=== PATIENT | female | born 1945 | race Caucasian/White ===

== ENCOUNTER → 2017-05-19 | Outpatient (CLI) | payer MEDICARE, OTHER ==
[~2017-05-19] MED LIST: ALDACTONE50 MG PO; ALFALFA650 MG PO; AMARYL2 MG PO; AMARYL4 MG PO; AMLODIPINE BESY10 MG PO; ATENOLOL 50 MG50 M1 PO; ATENOLOL 50MG T50 M1 PO; BENTYL 10 MG CA10 M1 PO; COLESTIPOL HCL1 G1 PO; CYCLOBENZAPRINE10 MG PO; DEMADEX20 MG PO; GLUCOPHAGE500 MG PO; KRILL OIL 1,001 EAC1 PO; LEVAQUIN 500 M500 M2 PO; LISINOPRIL10 MG PO; MAGOX 400400 MG PO; NOLVADEX20 MG PO; ONGLYZA5 MG PO; PROPRANOLOL 1010 MG PO; VICODIN ES TAB1 EACH PO; VITAMIN D2000 UNIT PO; XIFAXAN550 M1 PO
[2017-05-19 11:43] VITALS: BP 145/53
[2017-05-19 12:56] VITALS: BP 132/60
--- NOTE | 2017-05-19 13:02 | NUR ---
ARRIVED AMBULATORY. MADE SELF COMFORTABLE IN RECLINER. DENEIS ADVERSE REACTION TO MULTIPLE INFUSIONS OF SAME. PORT A CATH ACCESSED WTIH OUT DIFFICULTY. GOOD BRISK BLOOD RETURN NOTED AND FLUSHED WITH EASE. INFUSION COMPLETED AND TOLERATED WELL. PORT FLUSHED AND DEACCESSED. DENIES QUESTIONS OR NEEDS AT DISCHARGE.
== END ==
LOC: M.INFUS 00:08
DX: K74.69 Other cirrhosis of liver (principal)

== ENCOUNTER → 2017-05-25 | Outpatient (CLI) | payer MEDICARE, OTHER ==
[2017-05-25 11:40] VITALS: BP 147/61
--- NOTE | 2017-05-25 14:53 | NUR ---
ARRIVED AMBULATORY. MADE SELF COMFORTABLE IN RECLINER. PORT A CATH ACCESSED WTIH OUT DIFFICULTY. GOOD BRISK BLOOD RETURN NOTED AND FLUSHED WITH EASE. INUSION COMPLETED AND TOLERATED WELL. DENIES QUESTIONS OR NEEDS AT DISCHARGE.
== END ==
LOC: M.INFUS 06:06
DX: K74.69 Other cirrhosis of liver (principal)

== ENCOUNTER → 2017-06-08 | Outpatient (CLI) | payer MEDICARE, OTHER ==
[2017-06-08 11:38] VITALS: BP 139/53
--- NOTE | 2017-06-08 14:55 | NUR ---
ARRIVED AMBULATORY. MADE SELF COMFORTABLE. PORT A CATH ACCESED WITH OUT DIFFICULTY. GOOD BRISK BLOOD RETURN NOTED AND FLUSHED WITH EASY. INFUSION COMPLETED AND TOELRATED WELL. PORT DEACCESSED. DENIES QUESTIONS OR NEEDS AT DISCHARGE.
== END ==
LOC: M.INFUS 06:42
DX: K74.69 Other cirrhosis of liver (principal)

== ENCOUNTER → 2017-06-15 | Outpatient (CLI) | payer MEDICARE, OTHER ==
[2017-06-15 11:50] VITALS: BP 134/42
== END ==
LOC: M.INFUS 00:59
DX: K74.69 Other cirrhosis of liver (principal)

== ENCOUNTER → 2017-06-22 | Outpatient (CLI) | payer MEDICARE, OTHER ==
[2017-06-22 12:03] VITALS: BP 130/63
[2017-06-22 12:03] LABS: HEMATOCRIT 35.5 % (37.0-47.0); HEMOGLOBIN 11.9 gm/dL (12.0-15.0); MCHC 33.5 g/dL (28.0-37.0); MCV 80.7 fL (80.0-100.0); MPV 8.5 fl. (7.2-11.1); RBC 4.4 mil/uL (4.20-5.00); RDW-CV 18.9 % (10.5-14.5); WBC 5.5 thou/uL (4.0-11.0)
[2017-06-22 12:15] LABS: ALBUMIN 4.2 g/dL (3.4-5.0); CALCIUM 8.7 mg/dL (8.5-10.1); CREATININE 1.3 mg/dL (0.6-1.3); POTASSIUM 4.2 mmol/L (3.5-5.1); TOTAL BILIRUBIN 2.5 mg/dL (<0.1-1.0); TOTAL PROTEIN 7.1 g/dL (6.4-8.2)
--- NOTE | 2017-06-22 16:16 | NUR ---
ARRIVED AMBULATORY. MADE SELF COMFORTABLE IN RECLINER. PORT A CATH ACCESSED WTIH OUT DIFFICULTY. GOOD BRISK BLOOD RETURN NOTED AND FLUSHED WITH EASE. MONTHLY LABS DRAWN PER STANDING ORDER. INFUSION COMPLETED AND TOLERATED WELL. PORT FLUSHED AND DEACCESSED.
[2017-06-22 21:11] LABS: GLYCOHEMOGLOBIN (HGB A1C) 6.8 % (4.8-5.6)
== END ==
LOC: M.INFUS 06:00
PROVIDERS: Internal Medicine Gastroenterology
DX: K76.0 Fatty (change of) liver, not elsewhere classified (principal); E11.9 Type 2 diabetes mellitus without complications

== ENCOUNTER → 2017-06-29 | Outpatient (CLI) | payer MEDICARE, OTHER ==
[2017-06-29 11:40] VITALS: BP 138/57
--- NOTE | 2017-06-29 14:31 | NUR ---
ARRIVED AMBULATORY. MADE SELF COMFORTABLE IN RECLINER. PORT A CATH ACCESSED WTIH OUT DIFFICULTY. GOOD BRISK BLOOD RETURN NOTED AND FLUSHED WITH EASE. INFUSION COMPLETED AND TOLERATED WELL. PORT FLUSHED AND DEACCESSED. DENIES NEEDS AT DISCHARGE.
== END ==
LOC: M.INFUS 00:17
DX: K74.69 Other cirrhosis of liver (principal)

== ENCOUNTER → 2017-07-06 | Outpatient (CLI) | payer MEDICARE, OTHER ==
[2017-07-06 10:43] VITALS: BP 127/63
--- NOTE | 2017-07-06 13:05 | NUR ---
PORT A CATH ACCESSED WITH OUT DIFFICULTY. GOOD BRISK BLOOD RETURN NOTED AND FLUSHED WITH EASE. INFUSION COMPLETED AND TOLERATED WELL. PORT FLUSHED AND DEACCESSED. TOLERATED WELL.
== END ==
LOC: M.INFUS 06:32
DX: K74.69 Other cirrhosis of liver (principal)

== ENCOUNTER → 2017-07-13 | Outpatient (CLI) | payer MEDICARE, OTHER ==
[2017-07-13 12:02] VITALS: BP 149/68
--- NOTE | 2017-07-13 13:50 | NUR ---
1145:ARRIVED, MADE COMFORTABLE. 1230: LT. CHEST PAC ACCESSED WITHOUT DIFFICULTY BY THIS RN. BRISK BLOOD ASPIRATED AND FLUSHES EASILY. ALBUMIN STARTED AT THIS TIME. 1350:PT TOLERATED ALBUMIN WELL. STOPPED AT 1330. FLUSHED WITH 20ML OF NS. HEPARIN FLUSH AT 1335 AND DEACCESSED AT 1337. GAUZE DRSG/PAPER TAPE APPLIED. LEFT IN STABLE CONDITION. (NOTE: LAST LABS DRAWN 06/22...NOT DUE TO BE DRAWN TODAY)
== END ==
LOC: M.INFUS 06:08
DX: K74.69 Other cirrhosis of liver (principal); K76.0 Fatty (change of) liver, not elsewhere classified

== ENCOUNTER → 2017-07-20 | Outpatient (CLI) | payer MEDICARE, OTHER ==
[2017-07-20 11:54] VITALS: BP 161/69
[2017-07-20 12:12] LABS: HEMATOCRIT 35.6 % (37.0-47.0); MCH 28.4 pg (26.0-34.0); MCHC 33.9 g/dL (28.0-37.0); MCV 83.7 fL (80.0-100.0); MPV 9.1 fl. (7.2-11.1); RBC 4.25 mil/uL (4.20-5.00); RDW-CV 18.2 % (10.5-14.5); WBC 3.1 thou/uL (4.0-11.0)
[2017-07-20 12:26] LABS: ALBUMIN 4.1 g/dL (3.4-5.0); CALCIUM 8.5 mg/dL (8.5-10.1); CREATININE 1.3 mg/dL (0.6-1.3); POTASSIUM 4.1 mmol/L (3.5-5.1)
--- NOTE | 2017-07-20 13:04 | NUR ---
PT ARRIVED TO UNIT AT 1140. PORT ACCESSED WITHOUT DIFFICULTY. LABS DRAWN. ALBUMIN INFUSED. NO COMPLICATIONS. SITE DEACCESSED AND PACKED WITH HEPARIN FLUSH. DC'ED HOME AT THIS TIME.
[2017-07-21 03:09] LABS: GLYCOHEMOGLOBIN (HGB A1C) 6.3 % (4.8-5.6)
== END ==
LOC: M.INFUS 00:09
PROVIDERS: Internal Medicine Gastroenterology
DX: K76.0 Fatty (change of) liver, not elsewhere classified (principal); E11.9 Type 2 diabetes mellitus without complications

== ENCOUNTER → 2017-07-27 | Outpatient (CLI) | payer MEDICARE, OTHER ==
[2017-07-27 12:00] VITALS: BP 118/60
[2017-07-27 12:30] VITALS: BP 121/61
--- NOTE | 2017-07-27 13:07 | NUR ---
PT ARRIVED AT 1138. SETTLED HERSELF INTO A RECLINER. PORT ACCESSED AND LABS DRAWN. PT TOLERATED HER ALBUMIN INFUSION WITHOUT COMPLICATIONS. PORT DEACCESSED, FLUSH WITH HEPARIN. DC'ED HOME.
== END ==
LOC: M.INFUS 05:01
DX: K74.69 Other cirrhosis of liver (principal)

== ENCOUNTER → 2017-08-03 | Outpatient (CLI) | payer MEDICARE, OTHER ==
[2017-08-03 12:00] VITALS: BP 140/74
--- NOTE | 2017-08-03 13:21 | NUR ---
ARRIVED AMBULATORY. MADE SELF COMFORTABLE. DENIES ADVERSE REACTION TO PRIOR INFUSIONS OF SAME. PORT A CATH ACCESSED WITH OUT DIFFICULTY. GOOD BRISK BLOOD RETURN NOTED AND FLUSHED WITH EASE. INFUSION COMPLETED AND TOLERATED WELL. PORT FLUSHED AND THEN DEACCESSED. DENIES QUESTONS OR NEEDS AT DISHCARGE.
== END ==
LOC: M.INFUS 00:40
DX: K74.69 Other cirrhosis of liver (principal)

== ENCOUNTER → 2017-08-10 | Outpatient (CLI) | payer MEDICARE, OTHER ==
[2017-08-10 11:48] VITALS: BP 140/61
[2017-08-10 13:10] VITALS: BP 155/77
--- NOTE | 2017-08-10 14:08 | NUR ---
ARRIVED AMBULATORY. MADE SELF COMFORTABLE IN RECLINER. PORT A CATH ACCESSED WITH OUT DIFFICULTY. GOOD BRISK BLOOD RETURN NOTED AND FLUSHED WITH EASE. INFUSION COMPLETED AND TOELRATED WELL. PORT FLUSHED AND DEACCESSED. DENIES NEEDS AT DISCHARGE.
== END ==
LOC: M.INFUS 02:38
DX: K74.69 Other cirrhosis of liver (principal)

== ENCOUNTER → 2017-08-17 | Outpatient (CLI) | payer MEDICARE, OTHER ==
[2017-08-17 11:50] VITALS: BP 138/67
[2017-08-17 13:05] LABS: HEMATOCRIT 36.8 % (37.0-47.0); HEMOGLOBIN 12.3 gm/dL (12.0-15.0); MCH 28.5 pg (26.0-34.0); MCHC 33.5 g/dL (28.0-37.0); MCV 85.1 fL (80.0-100.0); MPV 9.9 fl. (7.2-11.1); RBC 4.33 mil/uL (4.20-5.00); RDW-CV 16.6 % (10.5-14.5); WBC 3.7 thou/uL (4.0-11.0)
[2017-08-17 13:15] LABS: ALBUMIN 4.3 g/dL (3.4-5.0); CREATININE 1.2 mg/dL (0.6-1.3); POTASSIUM 4.5 mmol/L (3.5-5.1); TOTAL BILIRUBIN 1.2 mg/dL (<0.1-1.0); TOTAL PROTEIN 7.3 g/dL (6.4-8.2)
--- NOTE | 2017-08-17 16:23 | NUR ---
ARRIVED AMBULATORY. MADE SELF COMFORTABLE IN RECLINER. PORT ACCESSED WITH OUT DIFFICULTY. GOOD BRISK BLOOD RETURN AND EASY FLUSH. INFUSION COMPLETED AND TOLERATED WELL.
[2017-08-18 03:08] LABS: GLYCOHEMOGLOBIN (HGB A1C) 6.9 % (4.8-5.6)
== END ==
LOC: M.INFUS 01:20
PROVIDERS: Internal Medicine Gastroenterology
DX: K76.0 Fatty (change of) liver, not elsewhere classified (principal); E11.9 Type 2 diabetes mellitus without complications

== ENCOUNTER → 2017-08-24 | Outpatient (CLI) | payer MEDICARE, OTHER ==
[2017-08-24 11:45] VITALS: BP 127/67
[2017-08-24 13:05] VITALS: BP 122/74
--- NOTE | 2017-08-24 13:15 | NUR ---
PORT ACCESSED WTIH EASE. GOOD BLOOD RETURN NOTED AND FLUSHED WITH EASE. INFUSION COMPLETED AND TOLERATED WELL. PORT FLUSHED AND DEACCESSED. DENEIS NEEDS AT DISCHARGE.
== END ==
LOC: M.INFUS 02:09
DX: K74.69 Other cirrhosis of liver (principal)

== ENCOUNTER → 2017-08-31 | Outpatient (CLI) | payer MEDICARE, OTHER ==
--- NOTE | 2017-08-31 11:45 | NUR ---
PATIENT ARRIVAL AMBULATORY TO OP INFUSION LAB. MADE SELF COMFORTABLE IN RECLINER. CALL LIGHT AND REMOTE WITHIN REACH. HISTORY AND ORDERS REVIEWED. REASSESSMENT AND VS OBTAINED. LT CHEST PORT ACCESSED PER PROTOCOL. BRISK BLOOD RETURN OBTAINED FROM PORT AND FLUSHES WELL.
[2017-08-31 11:50] VITALS: BP 138/52
--- NOTE | 2017-08-31 13:05 | NUR ---
PATIENT TOLERATES INFUSION WELL. STATUS WITHOUT CHANGES. LT CHEST PORT FLUSHED WITH NS 20MLS AND HEPARIN SOLUTION 5MLS OF 100UNIT/ML SOLUTION. PORT THEN DEACCESSED AND BANDAID APPLIED. PATIENT DEPARTS FOR HOME AT 1310.
--- NOTE | 2017-10-20 13:30 | NUR ---
LATE ENTRY FOR 08/31/17 ALBUMIN STOP TIME 6545
== END ==
LOC: M.INFUS 01:40
DX: K74.69 Other cirrhosis of liver (principal)

== ENCOUNTER → 2017-09-07 | Outpatient (CLI) | payer MEDICARE, OTHER ==
--- NOTE | 2017-09-07 11:26 | NUR ---
ARRIVED AMBULATORY. MADE SELF COMFORTABLE IN RECLINER. HISTORY AND ORDERS REVIEWED. REASSESSMENT AND VITAL SIGNS OBTAINED. LT CHEST PORT ACCESSED PER PROTOCOL W/BRISK BLOOD RETURN OBTAINED. FLUSHES WELL. CALL LIGHT AND REMOTE WITHIN REACH.
[2017-09-07 11:28] VITALS: BP 138/44
--- NOTE | 2017-09-07 12:48 | NUR ---
PATIENT TOLERATED INFUSION WELL. STATUS WITHOUT CHANGES. LEFT CHEST PORT FLUSHED W/NS 20 ML AND HEPARIN SOLUTION 5 MLS OF 100 UNIT/ML SOLUTION. PORT DEACCESSED AND BANDAID APPLIED. PT LEFT AMBULATORY FOR D/CHARGE HOME VIA FAMILY CAR.
== END ==
LOC: M.INFUS 01:50
DX: K74.69 Other cirrhosis of liver (principal)

== ENCOUNTER → 2017-09-14 | Outpatient (CLI) | payer MEDICARE, OTHER ==
[2017-09-14 11:40] VITALS: BP 141/48
--- NOTE | 2017-09-14 13:53 | NUR ---
ARRIVED AMBULATORY. MADE SELF COMFORTABLE IN RECLINER. PORT A CARTH ACCESSED WITH OUT DIFFICULTY. GOOD BRISK BLOOD RETURN NOTED AND FLUSHED WITH EASE. INFUSION COMPLETED AND TOLERATED WELL. PORT DEACCESSED.
== END ==
LOC: M.INFUS 00:07
DX: K74.69 Other cirrhosis of liver (principal)

== ENCOUNTER → 2017-09-21 | Outpatient (CLI) | payer MEDICARE, OTHER ==
--- NOTE | 2017-09-21 11:34 | NUR ---
PATIENT ARRIVAL AMBULATORY TO OP INFUSION LAB. MADE SELF COMFORTABLE IN RECLINER. REASSURANCE PROVIDED. HISTORY AND ORDERS REVIEWED. REASSESSMENT AND VS OBTAINED. PATIENT REQUESTING KATJA TO ACCESS HER PORT. PORT ACCESSED BY KATJA, INFUSION NURSE, UNDER STERILE TECHNIQUE. BRISK BLOOD RETURN OBTAINED WITH LAB DRAW AND PORT FLUSHES WELL.
[2017-09-21 11:37] VITALS: BP 141/59
[2017-09-21 12:08] LABS: HEMATOCRIT 39.5 % (37.0-47.0); HEMOGLOBIN 13.3 gm/dL (12.0-15.0); MCHC 33.7 g/dL (28.0-37.0); MCV 86.3 fL (80.0-100.0); MPV 8.9 fl. (7.2-11.1); RBC 4.57 mil/uL (4.20-5.00); RDW-CV 16.1 % (10.5-14.5); WBC 4.6 thou/uL (4.0-11.0)
[2017-09-21 12:17] LABS: CALCIUM 9.7 mg/dL (8.5-10.1); CREATININE 1.3 mg/dL (0.6-1.3); POTASSIUM 4.6 mmol/L (3.5-5.1)
[2017-09-21 12:21] LABS: ALBUMIN 4.5 g/dL (3.4-5.0); TOTAL BILIRUBIN 1.4 mg/dL (<0.1-1.0); TOTAL PROTEIN 7.5 g/dL (6.4-8.2)
--- NOTE | 2017-09-21 13:00 | NUR ---
ALBUMIN INFUSION COMPLETED WITHOUT PROBLEMS. PATIENT DENIES COMPLAINTS. PORT FLUSHED WITH NS 20MLS AND HEPARIN 5MLS OF 100UNIT/ML SOLUTION. PORT THEN DEACCESSED. GAUZE AND PAPER TAPE DRESSING APPLIED. PATIENT THEN DEPARTS FOR HOME AT 1305.
--- NOTE | 2017-09-21 14:05 | NUR ---
PHONED DR. CAMPOS'S OFFICE AND SPOKE WITH DEB, OFFICE NURSE, TO REPORT CRITICALLY LOW PLATELET LEVEL OF 33 TO PHYSICIAN. ALL LAB RESULTS ALSO FAXED TO DR. CAMPOS'S OFFICE.
[2017-09-22 07:06] LABS: GLYCOHEMOGLOBIN (HGB A1C) 6.9 % (4.8-5.6)
== END ==
LOC: M.INFUS 00:05
PROVIDERS: Internal Medicine Gastroenterology
DX: K74.69 Other cirrhosis of liver (principal)

== ENCOUNTER → 2017-09-28 | Outpatient (CLI) | payer MEDICARE, OTHER ==
--- NOTE | 2017-09-28 11:35 | NUR ---
PATIENT ARRIVAL AMBULATORY FROM HOME TO OP INFUSION AREA. MADE SELF COMFORTABLE IN RECLINER. CALL LIGHT AND REMOTE WITHIN REACH. HISTORY AND ORDERS REVIEWED. REASSESSMENT AND VS OBTAINED. LT CHEST PORTACATH ACCESSED UNDER STERILE TECHNIQUE. BRISK BLOOD RETURN OBTAINED FROM PORT. PORT FLUSHES EASILY AND IS WITHOUT REDNESS, SWELLING, OR EDEMA. ALBUMIN INFUSION STARTED ONCE AVAILABLE FROM PHARMACY. PATIENT DENIES CONCERNS.
[2017-09-28 11:38] VITALS: BP 130/52
--- NOTE | 2017-09-28 12:59 | NUR ---
ALBUMIN INFUSION COMPLETED WITHOUT DIFFICULTIES. PORT FLUSHED WITH NS 20MLS FOLLOWED BY HEPARIN 5MLS OF 100UNIT/ML SOLUTION. PORT THEN DEACCESSED AND GAUZE WITH PAPER TAPE DRESSING APPLIED. PATIENT DEPARTS FOR HOME AT 1302 WITHOUT CONCERNS.
== END ==
LOC: M.INFUS 01:31
DX: K74.69 Other cirrhosis of liver (principal)

== ENCOUNTER → 2017-10-05 | Outpatient (CLI) | payer MEDICARE, OTHER ==
--- NOTE | 2017-10-05 11:30 | NUR ---
PATIENT ARRIVAL AMBULATORY FROM HOME TO OP INFUSION AREA. MADE SELF COMFORTABLE IN RECLINER. CALL LIGHT AND REMOTE GIVEN TO PATIENT. HISTORY AND ORDERS REVIEWED. REASSESSMENT AND VS OBTAINED. PATIENT DENIES CONCERNS. LT CHEST PORTACATH ACCESSED UNDER STERILE TECHNIQUE. BRISK BLOOD RETURN OBTAINED AND PORT FLUSHES WELL.
[2017-10-05 11:33] VITALS: BP 150/58
--- NOTE | 2017-10-05 12:53 | NUR ---
ALBUMIN INFUSION COMPLETED WITHOUT DIFFICULTY. PORT FLUSHED WITH NS 20MLS FOLLOWED BY HEPARIN 5MLS OF 100UNIT/ML SOLUTION. PORT THEN DEACCESSED AND BANDAID APPLIED. PATIENT DEPARTS AMBULATORY FOR HOME AT 1256.
== END ==
LOC: M.INFUS 01:41
DX: K76.0 Fatty (change of) liver, not elsewhere classified (principal)

== ENCOUNTER → 2017-10-19 | Outpatient (CLI) | payer MEDICARE, OTHER ==
[2017-10-19 11:35] VITALS: BP 122/50
[2017-10-19 12:40] VITALS: BP 110/50
== END ==
LOC: M.INFUS 00:51
DX: K74.69 Other cirrhosis of liver (principal)

== ENCOUNTER → 2017-11-02 | Outpatient (CLI) | payer MEDICARE, OTHER ==
[2017-11-02 11:35] VITALS: BP 134/74
--- NOTE | 2017-11-02 15:13 | NUR ---
ARRIVED AMBULAOTRY. MADE SELF COMFORTABLE IN RECLINER. PORT A CATH ACCESSED WITH OUT DIFFICULTY. GOOD BLOOD RETURN NOTED AND FLUSHED WITH EASE. INFUSION COMPLETED AND TOELRATED WELL. PORT FLUSHED AND DEACCESSED. DENEIS NEEDS AT DISHCARGE.
== END ==
LOC: M.INFUS 01:22
DX: K74.69 Other cirrhosis of liver (principal)

== ENCOUNTER → 2017-11-16 | Outpatient (CLI) | payer MEDICARE, OTHER ==
[2017-11-16 11:40] VITALS: BP 155/51
[2017-11-16 12:52] VITALS: BP 148/64
== END ==
LOC: M.INFUS 05:56
DX: K74.69 Other cirrhosis of liver (principal)

== ENCOUNTER → 2017-12-14 | Outpatient (CLI) | payer MEDICARE, OTHER ==
[2017-12-14 14:06] VITALS: BP 166/68
--- NOTE | 2017-12-14 14:27 | NUR ---
PORT A CATH ACCESSED WITH OUT DIFFICULTY. GOOD BRIKS BLOOD RETURN NOTED AND FLUSHED WITH EASE. INFUSION COMPLETED AND TOLERATED WELL. PORT FLUSHED AND DEACCESSED. DENIES NEEDS AT DISCHARGE.
== END ==
LOC: M.INFUS 01:17
DX: K74.69 Other cirrhosis of liver (principal)

== ENCOUNTER → 2017-12-28 | Outpatient (CLI) | payer MEDICARE, OTHER ==
[2017-12-28 11:43] VITALS: BP 114/57
[2017-12-28 12:06] LABS: HEMATOCRIT 38.5 % (37.0-47.0); MCH 30.1 pg (26.0-34.0); MCHC 33.8 g/dL (28.0-37.0); MCV 88.8 fL (80.0-100.0); MPV 9.3 fl. (7.2-11.1); RBC 4.34 mil/uL (4.20-5.00); RDW-CV 15.2 % (10.5-14.5); WBC 4.2 thou/uL (4.0-11.0)
[2017-12-28 12:11] LABS: CALCIUM 8.3 mg/dL (8.5-10.1); CREATININE 1.1 mg/dL (0.6-1.3); POTASSIUM 4.1 mmol/L (3.5-5.1)
[2017-12-28 12:16] LABS: TOTAL BILIRUBIN 1.6 mg/dL (<0.1-1.0); TOTAL PROTEIN 6.9 g/dL (6.4-8.2)
--- NOTE | 2017-12-28 13:27 | NUR ---
ARRIVED AMBULATORY. DENIES ADVERSE REACTION TO MULTIPLE PRIOR INFUSION OF SAME. PORT A CATH ACCESSED WITH OUT DIFFICULTY. GOOD BRISK BLOOD RETURN AND EASY FLUSH NOTED. INFUSION COMPLETED AND TOELRATED WELL. PORT FLUSHED AND DEACCESSED. DENEIS QUESTIONS OR NEEDS AT DISCHARGE.
[2017-12-29 04:09] LABS: GLYCOHEMOGLOBIN (HGB A1C) 7.3 % (4.8-5.6)
== END ==
LOC: M.INFUS 05:21
PROVIDERS: Internal Medicine Gastroenterology
DX: K74.69 Other cirrhosis of liver (principal); R79.9 Abnormal finding of blood chemistry, unspecified

== ENCOUNTER → 2018-01-11 | Outpatient (CLI) | payer MEDICARE, OTHER ==
[2018-01-11 11:40] VITALS: BP 138/62
[2018-01-11 12:50] VITALS: BP 142/74
--- NOTE | 2018-01-11 13:34 | NUR ---
PORT A CATH ACCESSED WITH OUT DIFFICULTY. GOOD BRISKB LOOD RETURN NOTED AND FLUSHED WITH EASE. INFUSION COMPLETED AND TOLERATED WELL. PORT FLUSHED AND DEACCESSED. DENIES NEEDS AT DISCHARGE.
== END ==
LOC: M.INFUS 02:01
DX: K74.69 Other cirrhosis of liver (principal)

== ENCOUNTER → 2018-01-25 | Outpatient (CLI) | payer MEDICARE, OTHER ==
[2018-01-25 11:35] VITALS: BP 143/70
--- NOTE | 2018-01-25 13:12 | NUR ---
DENEIS ADVERSE REACTION TO PRIOR INFUSION OF SAME. PORT A CATH ACCESSED WITH OUT DIFFICULTY. GOOD BRISK BLOOD RETURN AND EASY FLUSH. INFSUION COMPLETED AND TOLERATED WELL. PORT FLUSHED AND DEACCESSED. DENIES NEEDS AT DISCHARGE.
== END ==
LOC: M.INFUS 01:28
DX: K74.69 Other cirrhosis of liver (principal)

== ENCOUNTER → 2018-02-08 | Outpatient (CLI) | payer MEDICARE, OTHER ==
[2018-02-08 11:50] VITALS: BP 132/74
[2018-02-08 12:31] LABS: ALKALINE PHOSPHATASE 44 U/L (46-116); ANION GAP 7 mmol/L (7-16); BUN 16 mg/dL (7-18); CALCIUM 8.3 mg/dL (8.5-10.1); CHLORIDE 104 mmol/L (98-107); CO2 27 mmol/L (21-32); CREATININE 1.1 mg/dL (0.6-1.3); GLUCOSE 154 mg/dL (70-99); POTASSIUM 4.5 mmol/L (3.5-5.1); SGOT 24 U/L (15-37); SGPT 27 U/L (30-65); SODIUM 138 mmol/L (136-145); TOTAL BILIRUBIN 1.5 mg/dL (<0.1-1.0)
[2018-02-08 12:43] LABS: CHOLESTEROL 137 mg/dL (<200); HDL CHOLESTEROL 37 mg/dL (>40); LDL CHOLESTEROL 79 mg/dL (<100); SERUM ASSESSMENT Clear; TC:HDL 3.7 Ratio (Not establshd); TRIGLYCERIDE 108 mg/dL (<150); VLDL 22 mg/dL (<40)
[2018-02-08 13:04] VITALS: BP 140/80
--- NOTE | 2018-02-08 13:11 | NUR ---
ARRIVED AMBULATORY. MADE SELF COMFORTABLE. PT HAS ADDITIONAL LAB ORDER FROM DR. CORONADO. LABS DRAWN FROM PORT. INFUSION COMPLETED AND TOLRATED WELL. PORT FLUSHED AND DEACCESSED. DENEIS NEEDS OR QUESTIONS AT DISCHARGE.
== END ==
LOC: M.INFUS 01:29
PROVIDERS: Internal Medicine
DX: K74.69 Other cirrhosis of liver (principal); K76.0 Fatty (change of) liver, not elsewhere classified; R53.83 Other fatigue

== ENCOUNTER → 2018-02-22 | Outpatient (CLI) | payer MEDICARE, OTHER ==
[2018-02-22 11:30] VITALS: BP 144/50
[2018-02-22 12:40] VITALS: BP 130/54
== END ==
LOC: M.INFUS 01:28
DX: K74.69 Other cirrhosis of liver (principal)

== ENCOUNTER → 2018-03-08 | Outpatient (CLI) | payer MEDICARE, OTHER ==
[2018-03-08 11:28] VITALS: BP 127/88
[2018-03-08 12:48] VITALS: BP 138/84
--- NOTE | 2018-03-08 13:03 | NUR ---
PORT ACCESSED WITH OUT DIFFICULTY. GOOD BRISK BLOOD RETURN NOTED AND EASY FLUSH. INFUSION COMPLETED AND TOLERATED WELL. PORT FLUSHED AND DEACCESSED.
== END ==
LOC: M.INFUS 03-01 11:00
DX: K74.69 Other cirrhosis of liver (principal)

== ENCOUNTER → 2018-03-22 | Outpatient (CLI) | payer MEDICARE, OTHER ==
[2018-03-22 11:30] VITALS: BP 145/53
[2018-03-22 13:00] VITALS: BP 152/60
== END ==
LOC: M.INFUS 03-08 11:00
DX: K74.69 Other cirrhosis of liver (principal)

== ENCOUNTER → 2018-04-05 | Outpatient (CLI) | payer MEDICARE, OTHER ==
[2018-04-05 11:50] VITALS: BP 119/53
[2018-04-05 11:59] LABS: HEMATOCRIT 38.8 % (37.0-47.0); HEMOGLOBIN 13.4 gm/dL (12.0-15.0); MCH 30.5 pg (26.0-34.0); MCHC 34.5 g/dL (28.0-37.0); MCV 88.4 fL (80.0-100.0); RBC 4.4 mil/uL (4.20-5.00); RDW-CV 14.6 % (10.5-14.5)
[2018-04-05 12:17] LABS: CALCIUM 8.9 mg/dL (8.5-10.1); CREATININE 1.4 mg/dL (0.6-1.3); POTASSIUM 4.3 mmol/L (3.5-5.1); TOTAL BILIRUBIN 1.4 mg/dL (<0.1-1.0)
[2018-04-05 13:07] VITALS: BP 122/58
--- NOTE | 2018-04-05 13:11 | NUR ---
ARRIVED AMUBLATOY. MADE SELF COMFORTABLE IN RECLINER. PORT A CATH ACCESSED WITH OUT DIFFICULTY. GOOD BRISK BLOOD RETURN NOTED AND FLUSHED WITH EASE. [place] LABS DRAWN PER STANDING ORDER. DENIES ADVERSE REACTION TO PRIOR INFUSION OF SAME. INFUSION COMPELTED AND TOLERATED WELL. PORT FLUSHED AND DEACCESSED.
[2018-04-05 23:09] LABS: GLYCOHEMOGLOBIN (HGB A1C) 8.1 % (4.8-5.6)
== END ==
LOC: M.INFUS 02-01 11:00
PROVIDERS: Internal Medicine Gastroenterology
DX: K74.69 Other cirrhosis of liver (principal); E11.9 Type 2 diabetes mellitus without complications

== ENCOUNTER → 2018-04-19 | Outpatient (CLI) | payer MEDICARE, OTHER ==
[2018-04-19 11:25] VITALS: BP 124/64
== END ==
LOC: M.INFUS 02-15 11:00
DX: K74.69 Other cirrhosis of liver (principal)

== ENCOUNTER → 2018-05-03 | Outpatient (CLI) | payer MEDICARE, OTHER | LOC: M.INFUS 03-15 11:00 | DX: K74.69 Other cirrhosis of liver (principal) ==

== ENCOUNTER 2018-05-13 11:25 | Emergency (ER) | payer MEDICARE, OTHER ==
[~2018-05-13] VITALS: Ht 162.6 cm; Wt 88.5 kg
[2018-05-13] MEDS ORDERED: CARVEDILOL6.25 M1 PO (11:38)
[2018-05-13] MEDS ORDERED: LEVEMIR SUBQ ×2 (11:38)
[2018-05-13] MEDS ORDERED: VITAMIN D3400 UNIT PO (11:40)
[2018-05-13] MEDS ORDERED: MILK THISTLE140 M2 PO (11:40)
[2018-05-13] MEDS ORDERED: NORCO 5-325 TA1 EAC1 PO (12:51)
[2018-05-13 13:28] VITALS: BP 170/52
== END 2018-05-13 13:29 | disposition home or self-care (01) ==
LOC: M.ERS 11:25
DX: S42.254A Nondisplaced fracture of greater tuberosity of right humerus, initial encounter for closed fracture (principal); E11.9 Type 2 diabetes mellitus without complications; K74.60 Unspecified cirrhosis of liver; I10 Essential (primary) hypertension; M81.0 Age-related osteoporosis without current pathological fracture; Z91.048 Other nonmedicinal substance allergy status; Z91.040 Latex allergy status; Z85.3 Personal history of malignant neoplasm of breast; Z90.49 Acquired absence of other specified parts of digestive tract; Z90.11 Acquired absence of right breast and nipple; Z79.4 Long term (current) use of insulin; W01.198A Fall on same level from slipping, tripping and stumbling with subsequent striking against other object, initial encounter; Y92.009 Unspecified place in unspecified non-institutional (private) residence as the place of occurrence of the external cause; Y93.89 Activity, other specified; Y99.8 Other external cause status

== ENCOUNTER → 2018-05-17 | Outpatient (CLI) | payer MEDICARE, OTHER ==
[~2018-05-17] MED LIST changes: +CARVEDILOL6.25 M1 PO; +LEVEMIR SUBQ; +MILK THISTLE140 M2 PO; +NORCO 5-325 TA1 EAC1 PO; +VITAMIN D3400 UNIT PO
[2018-05-17 11:20] VITALS: BP 132/74
--- NOTE | 2018-05-17 12:50 | NUR ---
ARRIVED AMBULATORY. MADE SELF COMFORTABLE. RIGHT UPPER ARM IN SLING AND PT REPORTS FALLING AT HOME 0N 05/12/18. REPORTTS RIGHT HUMERUS FRACTURE. LARGE BRUSIED AREA NOTED TO RIGHT CHEST DURING PORT ACCESS ON LEFT. PORT ACCESSED WITH OUT DIFFICULTY. GOOD BRISK BLOOD RETURN NOTED AND FLUSHED WITH EASE. INFUSION COMPLETED AND TOLERATED WELL. PORT FLUSHED AND DEACCESSED. DENEIS [id number] OR NEEDS AT DISCAHRGE.
== END ==
LOC: M.INFUS 02:16
DX: K74.69 Other cirrhosis of liver (principal)

== ENCOUNTER → 2018-05-31 | Outpatient (CLI) | payer MEDICARE, OTHER ==
[2018-05-31 10:30] VITALS: BP 147/68
[2018-05-31 12:47] VITALS: BP 161/75
== END ==
LOC: M.INFUS 05-24 11:00
DX: K74.69 Other cirrhosis of liver (principal)

== ENCOUNTER → 2018-06-14 | Outpatient (CLI) | payer MEDICARE, OTHER ==
--- NOTE | 2018-06-14 12:47 | NUR ---
ARRIVED AMBULATORY. MADE SELF COMFORTABLE IN RECLINER. PORT A CATH ACCESSED WITH OUT DIFFICULTY. GOOD BLOOD RETURN AND FLUSHED WITH EASE. INFUSION COMPELTED AND TOLERATED WELL. PORT FLUSHED AND DEACCESSED. DENIES NEEDS AT DISCHARGE.
== END ==
LOC: M.INFUS 06-07 11:00
DX: K74.69 Other cirrhosis of liver (principal)

== ENCOUNTER → 2018-06-28 | Outpatient (CLI) | payer MEDICARE, OTHER ==
[2018-06-28 09:56] VITALS: BP 140/65
[2018-06-28 10:21] LABS: ABSOLUTE EOSINOPHILS 0.1 thou/uL (0.0-0.7); ABSOLUTE LYMPHOCYTES 1.7 thou/uL (0.8-5.3); ABSOLUTE MONOCYTES 0.3 thou/uL (0.0-1.2); ABSOLUTE NEUTROPHILS 2.3 thou/uL (1.6-8.1); BASOPHILS 0.7 %; EOSINOPHILS 1.2 %; HEMATOCRIT 41.2 % (37.0-47.0); HEMOGLOBIN 14.2 gm/dL (12.0-15.0); LYMPHOCYTES 38.1 %; MCH 31.4 pg (26.0-34.0); MCHC 34.4 g/dL (28.0-37.0); MCV 91.5 fL (80.0-100.0); MONOCYTES 7.5 %; MPV 9.3 fl. (7.2-11.1); NUCLEATED RBCS 0 /100WBC; POLYS 52.5 %; RBC 4.51 mil/uL (4.20-5.00); RDW-CV 14.3 % (10.5-14.5); WBC 4.4 thou/uL (4.0-11.0)
[2018-06-28 10:24] LABS: PLATELET COUNT* 30 thou/uL (150-400)
[2018-06-28 10:37] LABS: ALBUMIN 3.9 g/dL (3.4-5.0); CALCIUM 9.3 mg/dL (8.5-10.1); CREATININE 1.2 mg/dL (0.6-1.3); POTASSIUM 4.4 mmol/L (3.5-5.1); TOTAL BILIRUBIN 1.2 mg/dL (<0.1-1.0)
--- NOTE | 2018-06-28 12:09 | NUR ---
arrived ambualtory. made self comfotable in recliner. port a cath accessed with out difficulty. good brisk blood return noted and flushed with ease. infusion completed and tolerated well. denies needs at discharge.
[2018-06-29 02:07] LABS: GLYCOHEMOGLOBIN (HGB A1C) 6.8 % (4.8-5.6)
== END ==
LOC: M.INFUS 06-21 11:00
PROVIDERS: Internal Medicine Gastroenterology
DX: K74.69 Other cirrhosis of liver (principal); E11.65 Type 2 diabetes mellitus with hyperglycemia

== ENCOUNTER → 2018-07-12 | Outpatient (CLI) | payer MEDICARE, OTHER ==
[2018-07-12 11:45] VITALS: BP 136/68
--- NOTE | 2018-07-12 14:07 | NUR ---
ARRIVED AMBULATORY. MADE SELF COMFORTABLE IN RECLINER. PORT A CATH PATENT. INFUSION COMPLETED AND TOERLATED WELL. DENIES NEEDS AT DISCHARGE.
== END ==
LOC: M.INFUS 07-05 11:00
DX: K74.69 Other cirrhosis of liver (principal)

== ENCOUNTER → 2018-07-26 | Outpatient (CLI) | payer MEDICARE, OTHER ==
[2018-07-26 11:54] VITALS: BP 117/64
[2018-07-26 13:00] VITALS: BP 122/70
--- NOTE | 2018-07-26 13:07 | NUR ---
ARRIVED AMUBLATORY. MADE SELF COMFORTABLE IN RECLINER. PORT A CATH ACCESSED WITH OUT DIFFICULTY GOOD BRISK BLOOD RETURN NOTED AND FLUSHED WITH EASE. INFUSION COMPLETED AND TOELRATED WELL. PORT FLUSHED AND DEACCESSED. DENIES NEEDS AT DIACHARGE.
== END ==
LOC: M.INFUS 01:03
DX: K74.69 Other cirrhosis of liver (principal)

== ENCOUNTER → 2018-08-09 | Outpatient (CLI) | payer MEDICARE, OTHER ==
[2018-08-09 11:35] VITALS: BP 132/75
--- NOTE | 2018-08-09 12:54 | NUR ---
INFUSION COMPELTED AND TOLERATED WELL. DENIES QUESTION OR NEEDS AT DISCHARGE.
== END ==
LOC: M.INFUS 01:13
DX: K74.69 Other cirrhosis of liver (principal)

== ENCOUNTER → 2018-08-23 | Outpatient (CLI) | payer MEDICARE, OTHER ==
[2018-08-23 11:40] VITALS: BP 132/75
[2018-08-23 12:06] LABS: CHOLESTEROL 131 mg/dL (<200); HDL CHOLESTEROL 41 mg/dL (>40); LDL CHOLESTEROL 70 mg/dL (<100); SERUM ASSESSMENT Clear; TC:HDL 3.2 Ratio (Not establshd); TRIGLYCERIDE 102 mg/dL (<150); VLDL 20 mg/dL (<40)
== END ==
LOC: M.INFUS 01:02
PROVIDERS: Family Medicine
DX: K74.69 Other cirrhosis of liver (principal); E11.9 Type 2 diabetes mellitus without complications; I10 Essential (primary) hypertension; E55.9 Vitamin D deficiency, unspecified; Z79.4 Long term (current) use of insulin; Z68.32 Body mass index [BMI] 32.0-32.9, adult

== ENCOUNTER → 2018-08-24 | Outpatient (CLI) | payer MEDICARE, OTHER | LOC: M.RAD 15:16 | DX: M81.0 Age-related osteoporosis without current pathological fracture (principal); M85.89 Other specified disorders of bone density and structure, multiple sites; E28.39 Other primary ovarian failure; C50.919 Malignant neoplasm of unspecified site of unspecified female breast; Z87.39 Personal history of other diseases of the musculoskeletal system and connective tissue; Z88.8 Allergy status to other drugs, medicaments and biological substances; Z78.0 Asymptomatic menopausal state ==

== ENCOUNTER → 2018-09-06 | Outpatient (CLI) | payer MEDICARE, OTHER ==
[2018-09-06 11:50] VITALS: BP 132/74
== END ==
LOC: M.INFUS 01:05
DX: K74.69 Other cirrhosis of liver (principal)

== ENCOUNTER → 2018-09-20 | Outpatient (CLI) | payer MEDICARE, OTHER ==
[2018-09-20 11:35] VITALS: BP 143/73
[2018-09-20 12:01] LABS: HEMATOCRIT 39.8 % (37.0-47.0); HEMOGLOBIN 13.7 gm/dL (12.0-15.0); MCH 30.9 pg (26.0-34.0); MCHC 34.4 g/dL (28.0-37.0); MCV 89.8 fL (80.0-100.0); MPV 10.2 fl. (7.2-11.1); RBC 4.43 mil/uL (4.20-5.00); RDW-CV 14.6 % (10.5-14.5); WBC 4.9 thou/uL (4.0-11.0)
[2018-09-20 12:24] LABS: ALBUMIN 3.9 g/dL (3.4-5.0); CALCIUM 9.3 mg/dL (8.5-10.1); CREATININE 1.4 mg/dL (0.6-1.3); POTASSIUM 4.7 mmol/L (3.5-5.1); TOTAL BILIRUBIN 2.2 mg/dL (<0.1-1.0); TOTAL PROTEIN 7.1 g/dL (6.4-8.2)
[2018-09-20 13:05] VITALS: BP 140/72
--- NOTE | 2018-09-20 13:46 | NUR ---
arrived ambulatory. port a cath accesed with out difficulty. good blood return and easy flush. quarterly labs drawn. critical lab results called and new diagnosis to support hgb a1c lab draw obtained to cover entire standing order. infsuion completed and tolerated well. denies needs at discharge.
[2018-09-20 23:06] LABS: GLYCOHEMOGLOBIN (HGB A1C) 9.3 % (4.8-5.6)
== END ==
LOC: M.INFUS 02:13
PROVIDERS: Internal Medicine Gastroenterology
DX: K74.60 Unspecified cirrhosis of liver (principal); E11.65 Type 2 diabetes mellitus with hyperglycemia

== ENCOUNTER → 2018-10-04 | Outpatient (CLI) | payer MEDICARE, OTHER ==
[2018-10-04 11:35] VITALS: BP 146/70
== END ==
LOC: M.INFUS 00:56
DX: K74.69 Other cirrhosis of liver (principal); E11.65 Type 2 diabetes mellitus with hyperglycemia

== ENCOUNTER → 2018-10-18 | Outpatient (CLI) | payer MEDICARE, OTHER ==
[2018-10-18 11:35] VITALS: BP 148/75
--- NOTE | 2018-10-18 13:15 | NUR ---
ARRIVED AMBULATORY. MADE SELF COMFORTABLE IN RECLINER. INFUSION COMPLETED AND TOLERATED WELL. PORT FLUSHED AND DEACCESSED. DENIES NEEDS AT DISCHARGE.
== END ==
LOC: M.INFUS 01:13
DX: K74.69 Other cirrhosis of liver (principal)

== ENCOUNTER → 2018-11-01 | Outpatient (CLI) | payer MEDICARE, OTHER ==
[2018-11-01 11:40] VITALS: BP 127/65
[2018-11-01 13:04] LABS: ALKALINE PHOSPHATASE 36 U/L (46-116); ANION GAP 12 mmol/L (7-16); BUN 24 mg/dL (7-18); CHLORIDE 106 mmol/L (98-107); CO2 24 mmol/L (21-32); CREATININE 1.2 mg/dL (0.6-1.3); GLUCOSE 73 mg/dL (70-99); POTASSIUM 4.2 mmol/L (3.5-5.1); SERUM ASSESSMENT Clear; SGOT 29 U/L (15-37); SGPT 34 U/L (30-65); SODIUM 142 mmol/L (136-145); TOTAL BILIRUBIN 1.7 mg/dL (<0.1-1.0); TOTAL PROTEIN 6.7 g/dL (6.4-8.2)
[2018-11-01 13:15] LABS: CHOLESTEROL 112 mg/dL (<200); HDL CHOLESTEROL 35 mg/dL (>40); LDL CHOLESTEROL 62 mg/dL (<100); TC:HDL 3.2 Ratio (Not establshd); TRIGLYCERIDE 75 mg/dL (<150); VLDL 15 mg/dL (<40)
== END ==
LOC: M.INFUS 00:39
PROVIDERS: Internal Medicine
DX: K74.69 Other cirrhosis of liver (principal); R60.1 Generalized edema; E11.65 Type 2 diabetes mellitus with hyperglycemia

== ENCOUNTER → 2018-11-15 | Outpatient (CLI) | payer MEDICARE, OTHER ==
[2018-11-15 11:35] VITALS: BP 122/76
[2018-11-15 12:58] VITALS: BP 134/75
--- NOTE | 2018-11-15 13:32 | NUR ---
ARRIVED AMBULATORY. MADE SELF COMFORTABLE. PORT A CATH ACCESSED WITH OUT DIFFICULTY. GOOD BRISK BLOOD RETURN NOTED AND FLUSHED WITH EASE. INFUSION COMPLETED AND TOLERATED WELL. PORT FLUSHED AND DEACCESSED. NEW ORDER RECIEVED FOR PLATELETS PRIOR TO COLONOSCOPY SCHEDULED TO FOLLOW NEXT APPOINTMENT. ORDER REVIEWED. NOTED ORDER IS FOR [address] CON[address] VELA. DR. VELA TO HAVE PHYSICIAN TO PHYSICIAN CONSULT WITH DR. SCOOBY CORDOBAING ORDER. PT SCHEDULED FOR PORT A CATH ACCESS ON 11/26/18, LAB DRAW FOR TYPE TO ORDER PLATELET ON 11/28/18, AND ALBUMIN AND PLATELET ADMINISTRATION ON Thursday11/29/18.
== END ==
LOC: M.INFUS 02:22
DX: K74.69 Other cirrhosis of liver (principal)

== ENCOUNTER → 2018-11-29 | Day surgery (SDC) | payer MEDICARE, OTHER ==
[2018-11-29 09:39] LABS: ABSOLUTE EOSINOPHILS 0.1 thou/uL (0.0-0.7); ABSOLUTE LYMPHOCYTES 1.6 thou/uL (0.8-5.3); ABSOLUTE MONOCYTES 0.4 thou/uL (0.0-1.2); ABSOLUTE NEUTROPHILS 2.7 thou/uL (1.6-8.1); BASOPHILS 0.8 %; EOSINOPHILS 1.3 %; HEMATOCRIT 40.8 % (37.0-47.0); HEMOGLOBIN 14.5 gm/dL (12.0-15.0); MCH 31.9 pg (26.0-34.0); MCHC 35.6 g/dL (28.0-37.0); MCV 89.7 fL (80.0-100.0); MONOCYTES 7.5 %; MPV 9.2 fl. (7.2-11.1); NUCLEATED RBCS 0 /100WBC; POLYS 56.4 %; RBC 4.55 mil/uL (4.20-5.00); RDW-CV 14.6 % (10.5-14.5); WBC 4.8 thou/uL (4.0-11.0)
[2018-11-29 09:41] LABS: PLATELET COUNT* 30 thou/uL (150-400)
[2018-11-29 09:45] LABS: CALCIUM 9.2 mg/dL (8.5-10.1); CREATININE 1.3 mg/dL (0.6-1.3); POTASSIUM 4.3 mmol/L (3.5-5.1)
[2018-11-29 09:49] LABS: ALBUMIN 4.1 g/dL (3.4-5.0); TOTAL BILIRUBIN 2.3 mg/dL (<0.1-1.0); TOTAL PROTEIN 7.2 g/dL (6.4-8.2)
[2018-11-29 10:02] LABS: INR 1.1; PROTIME 11.5 Seconds (9.20-11.50)
[2018-11-29 13:00] VITALS: BP 141/67; BP 147/56
--- NOTE | 2018-11-29 18:01 | EKG ---
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
--- NOTE | 2018-11-30 15:06 | PATH ---
[address] [address] PATHOLOGY RPT PROCEDURE Name: ZORA CASTILLO Room: [facility].#: [id number] Admission: 11/29/18 Date of : 41 Discharge: Report #: [id number] Path Case #: [id number] [facility] Accession Number: [id number] . 01 Material submitted: . PART A: colon - TRANSVERSE COLON POLYP. Modifiers: transverse PART B: cecum - CECAL POLYP . 01 Clinician provided ICD-10: R 19.5 Z 87.19 . 01 Clinical history: . Abnormal stool test, Hx of psorosis . 02 Diagnosis: A. Transverse colon polyp: - Tubular adenoma, negative for high-grade dysplasia. . B. Tissue submitted as "cecal polyp": - No diagnosis rendered. See comment. (USAMA:ruth; 11/30/2018) QTP/11/30/2018 . 02 Comment: No tissue survived processing for specimen B. (USAMA:pit; 11/30/2018) . 02 Electronically signed: . Sherwin Erickson MD, Pathologist NPI- [id number] . 01 Gross description: . A. Received in formalin labeled "Zora Castillo, transverse colon polyp," is a single segment of ratliff soft tissue measuring 0.2 cm in maximum dimension. The specimen is entirely submitted in cassette A1. . B. Received in formalin labeled "Zora Castillo, cecal polyp," are multiple segments of possible ratliff soft tissue admixed with vegetative material measuring 0.1 x 0.1 x 0.1 cm in aggregate dimensions. The specimen is filtered and entirely submitted in cassette B1. Due to the minute nature of the specimen, it may not survive processing. (TSD; 11/29/2018) TOB/TOB . 02 Pathologist provided ICD-10: D12.3 . 02 [place] [address] PATHOLOGY RPT PROCEDURE Name: ZORA CASTILLO Room: [facility]#: [id number] Admission: 11/29/18 Date of : 41 Discharge: Report #: [id number] Path Case #: [id number] [facility] . [id number], [id number] Specimen Comment: A courtesy copy of this report has been sent to Specimen Comment: [phone], , . Specimen Comment: Report sent to ,DR CAMPOS / DR MURRAY Performed at: [address], [place], [place] [id number] MD Shashank Sainz MD Phone: [phone] Performed at: 02 [facility] [address], [place], [place] [id number] MD Sherwin Erickson MD Phone: [phone]
== END | disposition home or self-care (01) ==
LOC: M.SUR 06:22
PROVIDERS: Internal Medicine Gastroenterology
DX: D12.3 Benign neoplasm of transverse colon (principal); K64.8 Other hemorrhoids; K64.4 Residual hemorrhoidal skin tags; K21.9 Gastro-esophageal reflux disease without esophagitis; E11.9 Type 2 diabetes mellitus without complications; K74.60 Unspecified cirrhosis of liver; E66.09 Other obesity due to excess calories; Z91.040 Latex allergy status; Z85.3 Personal history of malignant neoplasm of breast; Z79.899 Other long term (current) drug therapy; Z98.890 Other specified postprocedural states; Z87.19 Personal history of other diseases of the digestive system

== ENCOUNTER → 2018-12-13 | Outpatient (CLI) | payer MEDICARE, OTHER ==
[2018-12-13 11:35] VITALS: BP 145/68
[2018-12-13 12:57] VITALS: BP 138/75
--- NOTE | 2018-12-13 13:00 | NUR ---
ARRIVED AMBULATORY. MADE SELF COMFORTABLE. PORT A CATH ACCESSED WITH OUT DIFFICULTY. GOOD BRISK BLOOD RETURN NOTED AND FLUSHED WITH EASE. INFUSION COMPLETED AND TOLERATED WELL. ABDIRASHID NEEDS OR QUESTION AT DISCHARGE.
[2018-12-14 02:06] LABS: GLYCOHEMOGLOBIN (HGB A1C) 6.5 % (4.8-5.6)
== END ==
LOC: M.INFUS 11-29 08:00
PROVIDERS: Internal Medicine Gastroenterology
DX: K74.69 Other cirrhosis of liver (principal); R60.1 Generalized edema; E11.65 Type 2 diabetes mellitus with hyperglycemia

== ENCOUNTER → 2018-12-27 | Outpatient (CLI) | payer MEDICARE, OTHER ==
[2018-12-27 11:30] VITALS: BP 129/69
[2018-12-27 13:10] VITALS: BP 134/66
== END ==
LOC: M.INFUS 05:00
DX: K74.69 Other cirrhosis of liver (principal); R60.1 Generalized edema; E11.65 Type 2 diabetes mellitus with hyperglycemia

== ENCOUNTER → 2019-01-10 | Outpatient (CLI) | payer MEDICARE, OTHER ==
[2019-01-10 11:30] VITALS: BP 130/61
[2019-01-10 13:00] VITALS: BP 168/56
== END ==
LOC: M.INFUS 06:24
DX: K74.69 Other cirrhosis of liver (principal); E11.65 Type 2 diabetes mellitus with hyperglycemia

== ENCOUNTER → 2019-01-24 | Outpatient (CLI) | payer MEDICARE, OTHER ==
[2019-01-24 11:35] VITALS: BP 147/68
[2019-01-24 12:55] VITALS: BP 137/70
--- NOTE | 2019-01-24 13:13 | NUR ---
INFUSION COMPLETED AND TOLERATED WELL.
== END ==
LOC: M.INFUS 05:20
DX: K74.69 Other cirrhosis of liver (principal); E11.65 Type 2 diabetes mellitus with hyperglycemia; R60.1 Generalized edema

== ENCOUNTER → 2019-02-07 | Outpatient (CLI) | payer MEDICARE, OTHER ==
[2019-02-07 11:35] VITALS: BP 145/78
[2019-02-07 12:15] LABS: ALKALINE PHOSPHATASE 50 U/L (46-116); ANION GAP 9 mmol/L (7-16); BUN 25 mg/dL (7-18); CALCIUM 9.2 mg/dL (8.5-10.1); CHLORIDE 104 mmol/L (98-107); CHOLESTEROL 125 mg/dL (<200); CO2 26 mmol/L (21-32); CREATININE 1.4 mg/dL (0.6-1.3); GLUCOSE 242 mg/dL (70-99); HDL CHOLESTEROL 37 mg/dL (>40); LDL CHOLESTEROL 71 mg/dL (<100); POTASSIUM 4.1 mmol/L (3.5-5.1); SGOT 18 U/L (15-37); SGPT 30 U/L (30-65); SODIUM 139 mmol/L (136-145); TC:HDL 3.4 Ratio (Not establshd); TOTAL BILIRUBIN 1.9 mg/dL (<0.1-1.0); TOTAL PROTEIN 6.8 g/dL (6.4-8.2); TRIGLYCERIDE 88 mg/dL (<150); VLDL 18 mg/dL (<40)
[2019-02-07 12:16] LABS: SERUM ASSESSMENT Clear
[2019-02-07 12:31] LABS: HEMATOCRIT 39.1 % (37.0-47.0); HEMOGLOBIN 13.6 gm/dL (12.0-15.0); MCH 31.1 pg (26.0-34.0); MCHC 34.9 g/dL (28.0-37.0); MCV 89.1 fL (80.0-100.0); MPV 9.6 fl. (7.2-11.1); RBC 4.39 mil/uL (4.20-5.00); RDW-CV 14.2 % (10.5-14.5); WBC 4.2 thou/uL (4.0-11.0)
--- NOTE | 2019-02-07 15:03 | NUR ---
PORT ACCESSED. QUARTERLY LABS DRAWN WITH ADDITION LABS FROM DR DA SILVA. INFUSION COMPLETED AND TOLEATED WELL. PORT FLUSHED AND DEACCESSED. DENIES NEEDS AT DISCHARGE.
[2019-02-08 02:06] LABS: GLYCOHEMOGLOBIN (HGB A1C) 6.7 % (4.8-5.6)
== END ==
LOC: M.INFUS 04:57
PROVIDERS: Internal Medicine; Internal Medicine Gastroenterology
DX: K74.69 Other cirrhosis of liver (principal); R60.1 Generalized edema; E11.65 Type 2 diabetes mellitus with hyperglycemia

== ENCOUNTER → 2019-02-21 | Outpatient (CLI) | payer MEDICARE, OTHER ==
[2019-02-21 13:00] VITALS: BP 160/70
== END ==
LOC: M.INFUS 05:10
DX: K74.69 Other cirrhosis of liver (principal); E11.65 Type 2 diabetes mellitus with hyperglycemia; R60.1 Generalized edema

== ENCOUNTER → 2019-03-07 | Outpatient (CLI) | payer MEDICARE, OTHER ==
[2019-03-07 11:35] VITALS: BP 122/80
[2019-03-07 12:07] LABS: ABSOLUTE EOSINOPHILS 0.1 thou/uL (0.0-0.7); ABSOLUTE LYMPHOCYTES 1.6 thou/uL (0.8-5.3); ABSOLUTE MONOCYTES 0.3 thou/uL (0.0-1.2); ABSOLUTE NEUTROPHILS 2.3 thou/uL (1.6-8.1); BASOPHILS 0.8 %; EOSINOPHILS 1.5 %; HEMATOCRIT 38.3 % (37.0-47.0); HEMOGLOBIN 13.5 gm/dL (12.0-15.0); LYMPHOCYTES 36.3 %; MCH 31.2 pg (26.0-34.0); MCHC 35.2 g/dL (28.0-37.0); MCV 88.9 fL (80.0-100.0); MONOCYTES 7.6 %; MPV 9.8 fl. (7.2-11.1); NUCLEATED RBCS 0 /100WBC; POLYS 53.8 %; RBC 4.31 mil/uL (4.20-5.00); RDW-CV 14.4 % (10.5-14.5); WBC 4.3 thou/uL (4.0-11.0)
[2019-03-07 12:10] LABS: PLATELET COUNT* 28 thou/uL (150-400)
[2019-03-07 12:21] LABS: INR 1.1; PROTIME 11.4 Seconds (9.20-11.50)
[2019-03-07 12:29] LABS: ALBUMIN 3.9 g/dL (3.4-5.0); CALCIUM 9.4 mg/dL (8.5-10.1); CREATININE 1.3 mg/dL (0.6-1.3); POTASSIUM 4.2 mmol/L (3.5-5.1); TOTAL BILIRUBIN 1.9 mg/dL (<0.1-1.0); TOTAL PROTEIN 6.9 g/dL (6.4-8.2)
[2019-03-07 12:55] VITALS: BP 132/75
== END ==
LOC: M.INFUS 04:44
PROVIDERS: Internal Medicine Gastroenterology
DX: K74.69 Other cirrhosis of liver (principal); R60.1 Generalized edema; E11.65 Type 2 diabetes mellitus with hyperglycemia

== ENCOUNTER → 2019-03-21 | Outpatient (CLI) | payer MEDICARE, OTHER ==
[2019-03-21 11:15] VITALS: BP 159/51
[2019-03-22 02:10] LABS: GLYCOHEMOGLOBIN (HGB A1C) 7.1 % (4.8-5.6)
== END ==
LOC: M.ULTRA 02:40 → M.INFUS 11:30
PROVIDERS: Nurse Practitioner Adult Health
DX: K74.69 Other cirrhosis of liver (principal); R16.0 Hepatomegaly, not elsewhere classified; E11.65 Type 2 diabetes mellitus with hyperglycemia; R60.1 Generalized edema

== ENCOUNTER → 2019-04-04 | Outpatient (CLI) | payer MEDICARE, OTHER ==
[2019-04-04 11:35] VITALS: BP 132/77
[2019-04-04 13:00] VITALS: BP 122/74
== END ==
LOC: M.INFUS 01:54
DX: K74.69 Other cirrhosis of liver (principal); R16.0 Hepatomegaly, not elsewhere classified; E11.65 Type 2 diabetes mellitus with hyperglycemia

== ENCOUNTER → 2019-04-18 | Outpatient (CLI) | payer MEDICARE, OTHER ==
[2019-04-18 11:35] VITALS: BP 132/74
[2019-04-18 12:50] VITALS: BP 138/78
--- NOTE | 2019-04-18 13:02 | NUR ---
ARRIVED AMBULATORY. MADE SELF COMFORTABLE. PORT A CATH ACCESSED WITH OUT DIFFICULTY. GOOD BRISK BLOOD RETURN NOTED AND FLUSHED WITH EASE. INFUSION COMPLETED AND TOLERATED WELL. PORT FLUSHED AND DEACCESSED. DENIES QUESTIONS OR NEEDS AT DISCHARGE.
== END ==
LOC: M.INFUS 01:23
DX: K74.69 Other cirrhosis of liver (principal); E11.65 Type 2 diabetes mellitus with hyperglycemia; R16.0 Hepatomegaly, not elsewhere classified

== ENCOUNTER → 2019-05-02 | Outpatient (CLI) | payer MEDICARE, OTHER ==
[2019-05-02 11:00] VITALS: BP 142/65
[2019-05-02 13:56] VITALS: BP 136/40
== END ==
LOC: M.INFUS 01:10
DX: K74.69 Other cirrhosis of liver (principal); R60.1 Generalized edema; E11.65 Type 2 diabetes mellitus with hyperglycemia

== ENCOUNTER → 2019-05-16 | Outpatient (CLI) | payer MEDICARE, OTHER ==
[2019-05-16 11:40] VITALS: BP 147/66
== END ==
LOC: M.INFUS 04:51
DX: K74.69 Other cirrhosis of liver (principal); E11.65 Type 2 diabetes mellitus with hyperglycemia; R60.9 Edema, unspecified

== ENCOUNTER → 2019-05-30 | Outpatient (CLI) | payer MEDICARE, OTHER ==
[2019-05-30 11:38] VITALS: BP 134/69
--- NOTE | 2019-05-30 12:55 | NUR ---
ARRIVED AMBULATORY. MADE SELF COMFORTABLE IN RECLINER. PORT A CATH ACCESSED WITH OUT DIFFICULTY. GOOD BRISK BLOOD RETURN AND EASY FLUSH. INFUSION COMPLETED AND TOLERATED WELL. PORT FLUSHED AND DEACCESSED. DENEIS QUESTIONS OR NEEDS AT DISCHARGE.
== END ==
LOC: M.INFUS 01:24
DX: K74.69 Other cirrhosis of liver (principal); R60.1 Generalized edema; E11.65 Type 2 diabetes mellitus with hyperglycemia

== ENCOUNTER → 2019-06-13 | Outpatient (CLI) | payer MEDICARE, OTHER ==
[2019-06-13 11:38] VITALS: BP 117/60
[2019-06-13 12:01] LABS: HEMOGLOBIN 13.5 gm/dL (12.0-15.0); MCH 30.9 pg (26.0-34.0); MCHC 34.7 g/dL (28.0-37.0); RBC 4.38 mil/uL (4.20-5.00); RDW-CV 14.7 % (10.5-14.5); WBC 4.3 thou/uL (4.0-11.0)
[2019-06-13 12:46] LABS: CALCIUM 8.7 mg/dL (8.5-10.1); CREATININE 1.3 mg/dL (0.6-1.3); POTASSIUM 4.7 mmol/L (3.5-5.1); TOTAL BILIRUBIN 1.9 mg/dL (<0.1-1.0); TOTAL PROTEIN 6.9 g/dL (6.4-8.2)
== END ==
LOC: M.INFUS 01:52
PROVIDERS: Internal Medicine Gastroenterology
DX: K74.69 Other cirrhosis of liver (principal); E11.65 Type 2 diabetes mellitus with hyperglycemia; R60.1 Generalized edema

== ENCOUNTER → 2019-06-27 | Outpatient (CLI) | payer MEDICARE, OTHER ==
[2019-06-27 11:40] VITALS: BP 127/61
--- NOTE | 2019-06-27 12:55 | NUR ---
INFUSION COMPLETED AND TOERLATED WELL. DENEIS QUESTIONS OR NEEDS AT DISCHARGE.
== END ==
LOC: M.INFUS 01:06
DX: K74.69 Other cirrhosis of liver (principal); R60.1 Generalized edema; E11.65 Type 2 diabetes mellitus with hyperglycemia

== ENCOUNTER → 2019-07-11 | Outpatient (CLI) | payer MEDICARE, OTHER ==
[2019-07-11 11:35] VITALS: BP 128/60
== END ==
LOC: M.INFUS 03:43
DX: K74.69 Other cirrhosis of liver (principal); R60.1 Generalized edema; E11.65 Type 2 diabetes mellitus with hyperglycemia

== ENCOUNTER → 2019-07-25 | Outpatient (CLI) | payer MEDICARE, OTHER ==
[2019-07-25 11:40] VITALS: BP 145/67
== END ==
LOC: M.INFUS 01:06
DX: K74.69 Other cirrhosis of liver (principal); R60.1 Generalized edema; E11.65 Type 2 diabetes mellitus with hyperglycemia

== ENCOUNTER 2019-08-08 13:01 | Emergency (ER) | payer MEDICARE, OTHER ==
[~2019-08-08] VITALS: Ht 162.6 cm; Wt 72.6 kg
[~2019-08-08 13:01] MED LIST changes: -NORCO 5-325 TA1 EAC2 PO
[2019-08-08] MEDS ORDERED: NORCO 5-325 TA1 EAC2 PO (15:07)
[2019-08-08 15:32] VITALS: BP 140/47
== END 2019-08-08 15:34 | disposition home or self-care (01) ==
LOC: M.ERS 13:01
DX: S32.591A Other specified fracture of right pubis, initial encounter for closed fracture (principal); S16.1XXA Strain of muscle, fascia and tendon at neck level, initial encounter; S00.11XA Contusion of right eyelid and periocular area, initial encounter; I10 Essential (primary) hypertension; E11.9 Type 2 diabetes mellitus without complications; M81.0 Age-related osteoporosis without current pathological fracture; Z91.040 Latex allergy status; Z85.3 Personal history of malignant neoplasm of breast; W01.198A Fall on same level from slipping, tripping and stumbling with subsequent striking against other object, initial encounter; Y93.89 Activity, other specified; Y92.89 Other specified places as the place of occurrence of the external cause; Y99.8 Other external cause status

== ENCOUNTER → 2019-08-08 | Outpatient (CLI) | payer MEDICARE, OTHER ==
[~2019-08-08] MED LIST changes: +NORCO 5-325 TA1 EAC2 PO
== END ==
LOC: M.INFUS 03:07
DX: K74.69 Other cirrhosis of liver (principal); E11.65 Type 2 diabetes mellitus with hyperglycemia

== ENCOUNTER → 2019-08-22 | Outpatient (CLI) | payer MEDICARE, OTHER ==
[~2019-08-22] MED LIST changes: +NORCO 5-325 TA1 EAC2 PO
[2019-08-22 11:20] VITALS: BP 170/69
[2019-08-22 11:42] LABS: ABSOLUTE EOSINOPHILS 0.1 thou/uL (0.0-0.7); ABSOLUTE LYMPHOCYTES 2.1 thou/uL (0.8-5.3); ABSOLUTE MONOCYTES 0.4 thou/uL (0.0-1.2); ABSOLUTE NEUTROPHILS 2.4 thou/uL (1.6-8.1); BASOPHILS 0.7 %; EOSINOPHILS 1.4 %; HEMATOCRIT 38.3 % (37.0-47.0); HEMOGLOBIN 13.7 gm/dL (12.0-15.0); LYMPHOCYTES 42.5 %; MCH 32.3 pg (26.0-34.0); MCHC 35.8 g/dL (28.0-37.0); MCV 90.2 fL (80.0-100.0); MONOCYTES 8.1 %; MPV 8.5 fl. (7.2-11.1); NUCLEATED RBCS 0 /100WBC; POLYS 47.3 %; RBC 4.25 mil/uL (4.20-5.00); RDW-CV 17.9 % (10.5-14.5)
[2019-08-22 11:44] LABS: PLATELET COUNT* 36 thou/uL (150-400)
[2019-08-22 11:55] LABS: ALBUMIN 4.2 g/dL (3.4-5.0); CALCIUM 8.8 mg/dL (8.5-10.1); CREATININE 1.6 mg/dL (0.6-1.3); POTASSIUM 4.3 mmol/L (3.5-5.1); TOTAL BILIRUBIN 2.3 mg/dL (<0.1-1.0); TOTAL PROTEIN 7.2 g/dL (6.4-8.2)
[2019-08-22 13:00] VITALS: BP 156/72
--- NOTE | 2019-08-22 13:17 | NUR ---
ARRIVED PER WHEELCHAIR. TRANSFERED SELF TO RECLINER. PORT ACCESSED, GOOD BRISK BLOOD RETURN AND FLUSH WITH EASE. PT BROUGHT IN ORER FOR LAB. LABS DRAWN AND INFUSION COMPELTED AND TOLERATED WELL. PORT FLUSHED AND DEACCESSED.
== END ==
LOC: M.INFUS 02:52 → M.LAB 02:52 → M.ULTRA 11:00 → M.INFUS 11:30
PROVIDERS: Internal Medicine Gastroenterology
DX: K74.69 Other cirrhosis of liver (principal); R60.0 Localized edema; E11.65 Type 2 diabetes mellitus with hyperglycemia

== ENCOUNTER → 2019-09-05 | Outpatient (CLI) | payer MEDICARE, OTHER ==
[2019-09-05 11:44] VITALS: BP 146/65
[2019-09-05 12:55] VITALS: BP 152/74
[2019-09-06 04:07] LABS: GLYCOHEMOGLOBIN (HGB A1C) 5.8 % (4.8-5.6)
== END ==
LOC: M.INFUS 07:44
PROVIDERS: Internal Medicine Gastroenterology
DX: R60.1 Generalized edema (principal); K74.69 Other cirrhosis of liver; E11.65 Type 2 diabetes mellitus with hyperglycemia

== ENCOUNTER → 2019-09-19 | Outpatient (CLI) | payer MEDICARE, OTHER ==
[2019-09-19 11:30] VITALS: BP 138/65
[2019-09-19 12:35] VITALS: BP 130/68
== END ==
LOC: M.INFUS 09-16 11:30
DX: R60.1 Generalized edema (principal); K74.69 Other cirrhosis of liver; E11.65 Type 2 diabetes mellitus with hyperglycemia

== ENCOUNTER → 2019-10-03 | Outpatient (CLI) | payer MEDICARE, OTHER ==
[2019-10-03 11:40] VITALS: BP 146/71
[2019-10-03 12:21] LABS: CHOLESTEROL 139 mg/dL (<200); HDL CHOLESTEROL 34 mg/dL (>40); LDL CHOLESTEROL 85 mg/dL (<100); SERUM ASSESSMENT Clear; TC:HDL 4.1 Ratio (Not establshd); TRIGLYCERIDE 103 mg/dL (<150); VLDL 21 mg/dL (<40)
[2019-10-03 12:49] VITALS: BP 138/75
--- NOTE | 2019-10-03 12:52 | NUR ---
INFUSION COMPELTED AND TOLERATED WELL. DENIES QUESTIONS OR NEEDS AT DISCHARGE.
== END ==
LOC: M.INFUS 04:39
PROVIDERS: Internal Medicine
DX: K74.69 Other cirrhosis of liver (principal); E11.65 Type 2 diabetes mellitus with hyperglycemia; R60.1 Generalized edema

== ENCOUNTER → 2019-10-17 | Outpatient (CLI) | payer MEDICARE, OTHER ==
[2019-10-17 11:40] VITALS: BP 126/73
[2019-10-17 12:50] VITALS: BP 132/78
--- NOTE | 2019-10-17 13:41 | NUR ---
INFUSION COMPELTED AND TOLERATED WELL. DENIES ADVERSE REACTION AND NONE NOTED. PORT FLUSHED AND DEACCESSED. DENIES QUESTIONS OR NEEDS AT DISCHARGE.
== END ==
LOC: M.INFUS 02:16
DX: K74.69 Other cirrhosis of liver (principal); R60.1 Generalized edema; E11.65 Type 2 diabetes mellitus with hyperglycemia

== ENCOUNTER → 2019-10-31 | Outpatient (CLI) | payer MEDICARE, OTHER ==
[2019-10-31 11:20] VITALS: BP 140/70
[2019-10-31 12:32] VITALS: BP 132/78
--- NOTE | 2019-10-31 12:40 | NUR ---
INFUSION COMPLETED AND TOLERATED WELL. DENIES QUESTIONS OR NEEDS AT DISCHARGE.
== END ==
LOC: M.INFUS 02:37
PROVIDERS: ATTEND Internal Medicine Gastroenterology
DX: K74.69 Other cirrhosis of liver (principal); E11.65 Type 2 diabetes mellitus with hyperglycemia

== ENCOUNTER → 2019-11-14 | Outpatient (CLI) | payer MEDICARE, OTHER ==
[2019-11-14 11:35] VITALS: BP 137/63
[2019-11-14 12:45] VITALS: BP 142/67
--- NOTE | 2019-11-14 13:21 | NUR ---
INFUSION COMPLETED AND TOLERATED WELL. PORT DEACCESSED. DENIED QUESTIONS OR NEEDS AT DISCHARGE.
== END ==
LOC: M.INFUS 06:57
PROVIDERS: ATTEND Internal Medicine Gastroenterology
DX: K74.69 Other cirrhosis of liver (principal); E11.65 Type 2 diabetes mellitus with hyperglycemia; R60.1 Generalized edema

== ENCOUNTER → 2019-11-28 | Outpatient (CLI) | payer MEDICARE, OTHER ==
--- NOTE | 2019-11-28 13:17 | NUR ---
ARRIVED AMBULATORYL. MADE SELF COMFORTABLE IN RECLINER. PORT ACCESSED WITH OUT DIFFICULTY. GOOD BRISK BLOOD RETURN AND EASY FLUSH. INFUSION COMPLETED AND TOLERATED WELL. PORT FLUSHED AND DEACCESSED. DENIES QUESTION OR NEED AT DICHARGE.
== END ==
LOC: M.INFUS 02:55
PROVIDERS: ATTEND Internal Medicine Gastroenterology
DX: K74.69 Other cirrhosis of liver (principal); E11.65 Type 2 diabetes mellitus with hyperglycemia

== ENCOUNTER → 2019-12-12 | Outpatient (CLI) | payer MEDICARE, OTHER ==
[2019-12-12 11:56] LABS: HEMATOCRIT 37.3 % (37.0-47.0); HEMOGLOBIN 13.3 gm/dL (12.0-15.0); MCHC 35.7 g/dL (28.0-37.0); MCV 89.5 fL (80.0-100.0); RBC 4.16 mil/uL (4.20-5.00); RDW-CV 14.5 % (10.5-14.5); WBC 3.9 thou/uL (4.0-11.0)
[2019-12-12 12:09] LABS: ALBUMIN 4.1 g/dL (3.4-5.0); CALCIUM 8.7 mg/dL (8.5-10.1); CREATININE 1.4 mg/dL (0.6-1.3); POTASSIUM 4.2 mmol/L (3.5-5.1); TOTAL BILIRUBIN 1.9 mg/dL (<0.1-1.0); TOTAL PROTEIN 7.2 g/dL (6.4-8.2)
[2019-12-12 12:45] VITALS: BP 143/78
--- NOTE | 2019-12-12 13:30 | NUR ---
PORT ACCESSED WITH OUT DIFFICULTY. GOOD BRISK BLOOD RETURN NOTED AND FLUSHED WITH EASE. INFUSION COMPLETED AND TOLERATED WELL. DENIES QUESTIONS OR NEEDS AT DISCHARGE.
[2019-12-13 02:06] LABS: GLYCOHEMOGLOBIN (HGB A1C) 7.8 % (4.8-5.6)
== END ==
LOC: M.INFUS 09:20
PROVIDERS: ATTEND Internal Medicine Gastroenterology
DX: K74.69 Other cirrhosis of liver (principal); E11.65 Type 2 diabetes mellitus with hyperglycemia; R60.1 Generalized edema

== ENCOUNTER → 2019-12-26 | Outpatient (CLI) | payer MEDICARE, OTHER ==
[2019-12-26 11:30] VITALS: BP 119/71
[2019-12-26 12:55] VITALS: BP 122/74
--- NOTE | 2019-12-26 13:11 | NUR ---
INFUSION COMPLETED AND TOLERATED WELL. PORT FLUSHED AND DEACCESSED. DENIES QUESTIONS OR NEEDS AT DISCHARGE.
== END ==
LOC: M.INFUS 02:41
PROVIDERS: ATTEND Internal Medicine Gastroenterology
DX: K74.69 Other cirrhosis of liver (principal); E11.65 Type 2 diabetes mellitus with hyperglycemia

== ENCOUNTER 2020-06-27 16:11 | Observation (INO) | payer MEDICARE, OTHER ==
[~2020-06-27] VITALS: Ht 162.6 cm; Wt 76.2 kg
[2020-06-27 16:25] VITALS: BP 142/74
[2020-06-27 18:10] LABS: ABSOLUTE EOSINOPHILS 0.1 thou/uL (0.0-0.7); ABSOLUTE LYMPHOCYTES 2.2 thou/uL (0.8-5.3); ABSOLUTE MONOCYTES 0.5 thou/uL (0.0-1.2); ABSOLUTE NEUTROPHILS 3.3 thou/uL (1.6-8.1); BASOPHILS 0.6 %; EOSINOPHILS 1.2 %; HEMATOCRIT 39.4 % (37.0-47.0); HEMOGLOBIN 13.5 gm/dL (12.0-15.0); LYMPHOCYTES 36.1 %; MCH 29.9 pg (26.0-34.0); MCHC 34.4 g/dL (28.0-37.0); MCV 86.9 fL (80.0-100.0); MONOCYTES 8.6 %; MPV 8.5 fl. (7.2-11.1); NUCLEATED RBCS 0 /100WBC; POLYS 53.5 %; RBC 4.53 mil/uL (4.20-5.00); WBC 6.1 thou/uL (4.0-11.0)
[2020-06-27 18:16] LABS: URINE BILIRUBIN NEGATIVE (Negative); URINE BLOOD NEGATIVE (Negative); URINE CLARITY CLEAR; URINE COLOR YELLOW; URINE GLUCOSE-RANDOM NEGATIVE (Negative); URINE KETONES NEGATIVE (Negative); URINE LEUKOCYTES NEGATIVE (Negative); URINE NITRITE NEGATIVE (Negative); URINE PROTEIN NEGATIVE (Negative); URINE UROBILINOGEN 0.2 E.U./dl (0.2-1.0)
[2020-06-27 18:19] LABS: CALCIUM 8.6 mg/dL (8.5-10.1); CREATININE 1.5 mg/dL (0.6-1.3); POTASSIUM 4.3 mmol/L (3.5-5.1)
[2020-06-27 18:29] LABS: ALBUMIN 4.1 g/dL (3.4-5.0); DIRECT BILIRUBIN 0.5 mg/dL (<0.1-0.3); MAGNESIUM 2.5 mg/dL (1.8-2.4); TOTAL BILIRUBIN 1.3 mg/dL (<0.1-1.0)
[2020-06-27 19:03] LABS: PLATELET COUNT* 40 thou/uL (150-400)
[2020-06-27 20:44] VITALS: BP 138/69
[2020-06-27 20:50] VITALS: BP 154/53
[2020-06-28] VITALS: BP 154/52
[2020-06-28 03:11] VITALS: BP 143/57
[2020-06-28 08:04] VITALS: BP 140/57
--- NOTE | 2020-06-28 09:28 | NUR ---
CM SPOKE TO THE PT TO DISCUSS CM ASSESSMENT. PT A&O, INDEPENDENT WITH ADL'S, ACTIVE AND DRIVES. PT RESIDES AT HOME ALONE. PT OWNS A WALKER AND A CANE, BUT DID NOT USE EITHER PRIOR TO ADMIT. PT HAS PAST HX OF HH, BUT COULD NOT RECALL THE NAME. PT HAS 0 HX OF SNF. NO CM D/C PLANNING NEEDS ANTICIPATED. CM WILL REMAIN AVAILABLE TO ASSIST AND FOLLOW NEEDED.
--- NOTE | 2020-06-28 11:31 | EKG ---
[place] [address] ELECTROCARDIOGRAM REPORT Name: ZORA CASTILLO [address] [id number] Admission: 06/27/20 Attend Phys: Trey Maria, Discharge: Date of : 41 Date of Service: 06/27/20 1726 Report #: [id number] THIS REPORT FOR: //name// [facility] ED Test Date: 2020-06-27 Test Time: 17:26:49 Pat Name: ZORA CASTILLO Department: Room: [facility] Gender: F Set Up Operator: : 1945 Requested By: Angus Vaughn Order Number: [id number] MD: Jose Vasquez Measurements Intervals Wayne Rate: 79 P: -2 MI: 159 QRS: -6 QRSD: 95 T: 45 QT: 399 QTc: 458 Interpretive Statements Sinus rhythm Anteroseptal infarct, age indeterminate possible Compared to ECG 11/29/2018 11:01:00 Myocardial infarct finding now possible Electronically Signed On 06-28-2020 11:31:34 BEESWAX BLEACHER by Jose Vasquez [email or web address] <ELECTRONICALLY SIGNED> By: Jose Vasquez MD, [facility] 06/28/20 1131 1726 1726 Jose Vasquez MD, [facility] /EPI
[2020-06-28 11:58] LABS: APTT 25.7 Seconds (25.0-31.3); INR 1.1; PROTIME 11.4 Seconds (9.20-11.50)
[2020-06-28 16:48] VITALS: BP 142/57
--- NOTE | 2020-06-28 19:06 | NUR ---
RECEIVED REPORT FROM NIGHT RN AND ASSUMED CARE FOR PATIENT AT APPROXIMATELY 0830 THIS MORNING. ASSESSED PATIENT AND GAVE MEDS PER EMAR. PATIENT IS ALERT AND ORIENTED X 4, SLIGHTLY ANXIOUS FOR SCHEDULED THORACENTESIS TODAY, BUT EASILY CONSOLED. PT NPO. DENIED PAIN OR ANY DISCOMFORT AT THIS TIME. PATIENT HAS A PORT A CATH ON LEFT SIDE OF CHEST. WILL CONTINUE TO MONITOR.
[2020-06-28 20:00] VITALS: BP 144/55
[2020-06-29] VITALS: BP 156/62
[2020-06-29 04:00] VITALS: BP 156/55
[2020-06-29 05:03] LABS: HEMOGLOBIN 12.6 gm/dL (12.0-15.0); MCH 30.4 pg (26.0-34.0); MCHC 34.8 g/dL (28.0-37.0); MCV 87.3 fL (80.0-100.0); MPV 8.1 fl. (7.2-11.1); RBC 4.13 mil/uL (4.20-5.00); RDW-CV 15.1 % (10.5-14.5); WBC 5.5 thou/uL (4.0-11.0)
[2020-06-29 05:16] LABS: CALCIUM 8.8 mg/dL (8.5-10.1); CREATININE 1.1 mg/dL (0.6-1.3); POTASSIUM 4.2 mmol/L (3.5-5.1)
[2020-06-29 09:46] VITALS: BP 158/45
--- NOTE | 2020-06-29 12:02 | NUR ---
CM INFORMED DURING PRIME ROUNDING OF THE PLAN OF CARE FOR THE PT. PLAN FOR PT TO D/C HOME TODAY WITH SELF-CARE. NO CM D/C PLANNING NEEDS ANTICIPATED. CM WILL REMAIN AVAILABLE TO ASSIST AND FOLLOW NEEDED.
[2020-06-29 12:14] VITALS: BP 136/57
[2020-06-29 13:08] VITALS: BP 136/57
--- NOTE | 2020-06-29 13:52 | NUR ---
RECEIVED REPORT. ASSUMED CARE OF PT AROUND 0730. AM ASSESSMENT AND VITALS COMPLETED CHARTED. MEDS PER EMAR. DISCHARGE ORDERS RECEIVED. DISCHARGE COMPLETED DOCUMENTED. PT AWARE TO FOLLOW UP WITH HER PCP. PORT DEACCESSED. CABLE LAYER REMOVED. ALL BELONGINGS GATHERED AND SENT OUT WITH THE PT. PT LEFT UNIT WALKING WITH NURSING STAFF. PT LEFT HOSPITAL IN CAR DRIVING HERSELF.
[2020-06-29 14:17] LABS: CLARITY TURBID; SOURCE PLEURAL; TOTAL VOLUME 1160 ml
[2020-06-29 14:18] LABS: BF RBC 4667 /mm3; TOTAL CELL COUNT 252 /mm3
[2020-06-29 14:29] LABS: BF LYMPHOCYTES 7 %; BF MONOCYTES 0 %; BF POLYS 7 %; BF TISSUE 80 /100 WBC; BODY FLUID BANDS 6 %
--- NOTE | 2020-07-03 15:07 | PATH ---
[address] [address] PATHOLOGY RPT PROCEDURE Name: ZORA CASTILLO Room: [address] Emily Bobby#: [id number] Admission: 06/27/20 Date of : 41 Discharge: 06/29/20 Report #: [id number] Path Case #: [id number] Note [facility] Accession Number: [id number] TESTS RESULT FLAG UNITS REF RANGE LAB Clinician Provided Cytology Information No. of containers..01 Other (Miscellaneous) Source: [A] 01 PLEURAL FLUID DIAGNOSIS: [A] 02 PLEURAL FLUID POSITIVE FOR MALIGNANT CELLS. THIS INTERPRETATION INCLUDES EVALUATION OF A CELL BLOCK. COMMENT, MALIGNANT CELLS ARE PRESENT SINGLY AND IN GLAND FORMATION. CLINICAL HISTORY OF BREAST CARCINOMA NOTED. THIS CASE WAS ALSO DISCUSSED WITH DR MENA. A BY DR GIL ON 07/02/2020 AT 2:30 PM. NO IMMUNOPEROXIDASE STAINS PERFORMED. Signed out by: Eneida Gil MD, Pathologist NPI- [id number] Performed by: Amanda Sebastian, Hamper Maker ([facility]) Gross description: 05 30, CLOUDY, 1TP 1CB /LCS 07/02/2020 0703 Local FLAG LEGEND: L-Low Normal,H-High Normal,LL-Alert Low,HH-Alert High <-Panic Low,>-Panic High,A-Abnormal,AA-Critical Abnormal Performed at: [address] [place] [address] John Gil MD, [address] [address] Zohreh Rome MD, Specimen Comment: A courtesy copy of this report has been sent to [phone] Specimen Comment: [id number] Specimen Comment: Report sent to DR COTTRELL,DR ZAMARRIPA / DR MURRAY Specimen Comment: A duplicate report has been generated due to demographic updates. Performed at: [address] [address] PATHOLOGY RPT PROCEDURE Name: ZORA CASTILLO Room: [address] Emily Bobby#: [id number] Admission: 06/27/20 Date of : 41 Discharge: 06/29/20 Report #: [id number] Path Case #: [id number] [address] [facility] [address], [place], [place] [id number] MD John Gil MD Phone: [phone]
== END 2020-06-29 13:50 | disposition home or self-care (01) ==
LOC: M.ERS 16:11 → M.2W 18:55 → M.TBA-ER 18:55 → M.2W 20:50
PROVIDERS: Emergency Medicine; Family Medicine; ADMIT Internal Medicine; ATTEND Internal Medicine
DX: J90 Pleural effusion, not elsewhere classified (principal); E11.9 Type 2 diabetes mellitus without complications; N17.9 Acute kidney failure, unspecified; K76.9 Liver disease, unspecified; E88.09 Other disorders of plasma-protein metabolism, not elsewhere classified; D69.6 Thrombocytopenia, unspecified; Z79.899 Other long term (current) drug therapy; Z20.828 Contact with and (suspected) exposure to other viral communicable diseases